=== PATIENT | female | born 1975 | race Caucasian/White ===

== ENCOUNTER 2021-07-26 12:22 | Inpatient (IN) | payer OTHER ==
[2021-07-26 13:53] VITALS: BMI 43.7
[2021-07-26 17:38] LABS: Bilirubin Negative (Negative); Blood, Urine Negative (Negative); Clarity Clear (Clear); Glucose, Urine (Dipstick) Normal (Negative); Ketone, Urine Negative (Negative); Leukocyte Negative Leu/uL (Negative); Mucous/LPF Rare LPF (<2+); Nitrite Negative (Negative); Protein, Urine (Dipstick) Negative (Neg-Trace); RBC/HPF 0-3 HPF (0-3); Specific Gravity, Urine 1.018 (1.002-1.036); Squamous Epithelial 0-3 HPF (0-3); Urobilinogen Normal mg/dL (Less than 2); WBC/HPF 0-3 HPF (0-3); pH, Urine 5.5 (5.0-9.0)
[2021-07-26] MEDS: Sodium Chloride 0.9% 1,000 ML IV SCH (17:39)
[2021-07-26] MEDS: Ondansetron PF 4 MG/2 ML Vial IVP PRN (17:39)
[2021-07-26] MEDS: Morphine 2 MG/ML VIAL SLOW IVP PRN (17:40)
[2021-07-26 17:41] LABS: Bacteria/HPF 1+ HPF (None Seen)
[2021-07-26 17:43] LABS: Urine Culture Reflex Yes Yes
[2021-07-26] MEDS: Famotidine/PF 20 mg/2ml Vial SLOW IVP SCH (22:00)
[2021-07-26] MEDS: Ketorolac Tromethamine 30 MG/ML VIAL IVP PRN (22:02)
[2021-07-27] MEDS: Ondansetron PF 4 MG/2 ML Vial IVP PRN ×2 (02:06→17:23)
[2021-07-27] MEDS: Sodium Chloride 0.9% 1,000 ML IV SCH ×3 (02:06→23:56)
[2021-07-27] MEDS: Morphine 2 MG/ML VIAL SLOW IVP PRN (02:09)
[2021-07-27] MEDS: Ketorolac Tromethamine 30 MG/ML VIAL IVP PRN ×3 (04:32→21:06)
[2021-07-27 06:45] LABS: ALT (SGPT) 61 U/L (8-55); AST (SGOT) 40 U/L (5-34); Albumin 3.3 g/dL (3.5-5.0); Alkaline Phosphatase 63 U/L (40-110); Anion Gap 12 mmol/L (10-20); BUN (Urea Nitrogen) 10 mg/dL (7.0-18.7); Bilirubin, Total 0.5 mg/dL (0.2-1.2); Calc. Creatinine Clearance 186 mL/min (70-130); Calcium 8.2 mg/dL (7.8-10.44); Carbon Dioxide 21 mmol/L (22-29); Chloride 108 mmol/L (98-107); Globulin 3.3 g/dL (2.4-3.5); Glucose 108 mg/dL (70-105); Potassium 4.3 mmol/L (3.5-5.1); Protein, Total 6.6 g/dL (6.0-8.3); Sodium 137 mmol/L (136-145)
[2021-07-27 07:06] LABS: HBCM Index 0.06 S/CO (0-0.79); HBSAg Index 0.25 S/CO (0-0.99); Hep A IgM AB Non-Reactive (NonReactive); Hep A IgM S/CO 0.12 S/CO (0-0.79); Hep B Surf Ag Non-Reactive S/CO (NonReactive); Hep C IgG Ab Non-Reactive (NonReactive); Hep C Index 0.11 S/CO (0-0.79); Hepatitis B Core IgM Abs Non-Reactive (NonReactive)
[2021-07-27] MEDS: Famotidine/PF 20 mg/2ml Vial SLOW IVP SCH ×2 (08:30→21:06)
[2021-07-28] MEDS: Famotidine/PF 20 mg/2ml Vial SLOW IVP SCH ×2 (08:25→22:57)
[2021-07-28] MEDS: Sodium Chloride 0.9% 1,000 ML IV SCH ×2 (17:48→22:57)
[2021-07-28] MEDS ORDERED: Bupivacaine PF 0.5% 30 ML VIAL ONE (19:03)
[2021-07-28] MEDS ORDERED: Lidocaine 1% w/Epinephrine 1:100K 20 ML VIAL ONE (19:03)
[2021-07-28] MEDS ORDERED: Fentanyl 100 MCG/2 ML VIAL ONE (19:31)
[2021-07-28] MEDS ORDERED: Ondansetron PF 4 MG/2 ML Vial ONE ×2 (19:35→21:50)
[2021-07-28] MEDS ORDERED: Ketorolac Tromethamine 30 MG/ML VIAL ONE (19:35)
[2021-07-28] MEDS ORDERED: PROPOFOL 200 MG/20 ML VIAL ONE (19:35)
[2021-07-28] MEDS ORDERED: Rocuronium Bromide 10 MG/ML (10ML VIAL) ONE (19:35)
[2021-07-28] MEDS ORDERED: Esmolol 100 MG/10 ML VIAL ONE (19:35)
[2021-07-28] MEDS ORDERED: Succinylcholine 200 MG/10 ml SYRINGE FS ONE (19:35)
[2021-07-28] MEDS ORDERED: traMADol HCl 50 MG TAB PO PRN (19:35)
[2021-07-28] MEDS ORDERED: Glycopyrrolate 0.2 MG/ML 5 ML SYRINGE ONE (19:35)
[2021-07-28] MEDS ORDERED: Dexamethasone 20 MG/5 ML VIAL ONE (19:35)
[2021-07-28] MEDS ORDERED: PACU-Morphine 4MG/ML VIAL SLOW IVP PRN (21:50)
[2021-07-28] MEDS ORDERED: HYDROmorphone 2 MG/ML VIAL SLOW IVP PRN (21:50)
[2021-07-28] MEDS ORDERED: Promethazine HCl 25 MG/ML VIAL IM PRN (21:50)
[2021-07-28] MEDS ORDERED: Ondansetron HCl/PF 4 MG/2 ML Vial IVP PRN (21:50)
[2021-07-28] MEDS ORDERED: Promethazine HCl 25 MG/ML VIAL IVPB PRN (21:50)
[2021-07-28] MEDS ORDERED: Promethazine HCl 25 MG/ML VIAL ONE (22:16)
[2021-07-29] MEDS: Sodium Chloride 0.9% 1,000 ML IV SCH (05:31)
[2021-07-29] MEDS: Ketorolac Tromethamine 30 MG/ML VIAL IVP PRN (05:34)
[2021-07-29 08:30] VITALS: BP 116/72; TEMP 97.8
[2021-07-29] MEDS: Famotidine/PF 20 mg/2ml Vial SLOW IVP SCH (10:27)
== END 2021-07-29 14:14 | disposition home or self-care (01) | DRG 418 ==
LOC: SJJU 13:09 → INTOOBSV 07-27 13:28 → OBSVTOIN 07-27 13:28
PROVIDERS: ADMIT Internal Medicine; ATTEND Internal Medicine
PROC: 0FT44ZZ Resection of Gallbladder, Percutaneous Endoscopic Approach (ICD-10-PCS; principal; 2021-07-28)
DX: K82.8 Other specified diseases of gallbladder (principal); Z68.41 Body mass index [BMI] 40.0-44.9, adult; K76.0 Fatty (change of) liver, not elsewhere classified; E66.01 Morbid (severe) obesity due to excess calories; Z88.0 Allergy status to penicillin; Z88.8 Allergy status to other drugs, medicaments and biological substances; Z90.49 Acquired absence of other specified parts of digestive tract
CPT/HCPCS: 36415; 71045; 78227; 80053; 80074; 81001; 87086; 88304; 96374; 96375; 96376; A9537; G0378; J0690; J1100; J1885; J2270; J2405; J2550; J2704; J3010; J7050; S0020; S0028